=== PATIENT | male | born 1965 | race Two or more races ===

== ENCOUNTER 2019-07-02 05:40 | Inpatient (IN) | payer MEDICAID ==
[~2019-07-02] VITALS: Ht 170.2 cm; Wt 118.1 kg
[~2019-07-02 05:40] MED LIST: ASPI81TA45 PO; COLLAGEN PO; METF850T10 PO; RMFLEX PO
[2019-07-02] MEDS ORDERED: LACTATED RINGERS 1,000 ML IV SCH (06:01)
[2019-07-02 06:06] VITALS: BP 141/99
[2019-07-02] MEDS ORDERED: FENTANYL PF 250 MCG/5ML ONE (06:11)
[2019-07-02] MEDS ORDERED: ROCURONIUM 10MG/ML,5ML ONE (06:11)
[2019-07-02] MEDS ORDERED: ONDANSETRON 2MG/ML, 2ML ONE (06:11)
[2019-07-02] MEDS ORDERED: DEXAMETHASONE 4 MG/ML, 1ML ONE ×2 (06:11)
[2019-07-02] MEDS ORDERED: MIDAZOLAM 1 MG/ML, 2ML ONE (06:11)
[2019-07-02] MEDS ORDERED: CEFAZOLIN 1,000 MG ONE ×2 (06:11)
[2019-07-02] MEDS ORDERED: BUPIVACAINE/PF 0.25% ONE (06:15)
[2019-07-02] MEDS ORDERED: LIDOCAINE-MPF 2% ,5ML ONE (06:17)
[2019-07-02] MEDS ORDERED: KETOROLAC 60 MG/2 ML ONE (06:27)
[2019-07-02] MEDS ORDERED: TRANEXAMIC ACID 100 MG/ML, 10ML ONE ×2 (06:27)
[2019-07-02] MEDS ORDERED: EPINEPHRINE 1 MG/ML, 1ML ONE (06:28)
[2019-07-02] MEDS ORDERED: VANCOMYCIN 1,000 MG ONE (06:28)
[2019-07-02] MEDS ORDERED: ROPIvacaine/PF 0.5%, 30 ML ONE (06:28)
[2019-07-02] MEDS ORDERED: SODIUM CHLORIDE 0.9% 50 ML ONE (06:28)
[2019-07-02] MEDS ORDERED: SCOPOLAMINE PATCH, 1.5MG PATCH.TD72 TD ONE (06:30)
[2019-07-02] MEDS ORDERED: DIPHENHYDRAMINE 25 MG CAPSULE PO PRN (06:30)
[2019-07-02] MEDS ORDERED: ACETAMINOPHEN 650 MG/20.3 ML UDC PO PRN (06:30)
[2019-07-02] MEDS ORDERED: ONDANSETRON 2MG/ML, 2ML IV PRN ×2 (06:30→07:00)
[2019-07-02] MEDS ORDERED: HYDROmorphone 1 MG/ML, 1ML INJ IV PRN (06:30)
[2019-07-02] MEDS ORDERED: BISACODYL 10 MG SUPP PR PRN (06:30)
[2019-07-02] MEDS ORDERED: MAGNESIUM HYDROXIDE 8%, 30ML UDC PO PRN (06:30)
[2019-07-02] MEDS ORDERED: GABAPENTIN 300 MG CAPSULE PO ONE (06:30)
[2019-07-02] MEDS ORDERED: ONDANSETRON 4 MG TABLET PO PRN (06:30)
[2019-07-02] MEDS ORDERED: ACETAMINOPHEN 500 MG TABLET PO ONE (06:30)
[2019-07-02] MEDS ORDERED: SENNA/DOCUSATE TABLET PO PRN (06:30)
[2019-07-02] MEDS ORDERED: ZOLPIDEM 5MG TABLET PO PRN (06:30)
[2019-07-02] MEDS ORDERED: PROPOFOL 10 MG/ML, 20ML ONE (06:58)
[2019-07-02] MEDS ORDERED: LABETALOL 5MG/ML, 20ML IV PRN (07:00)
[2019-07-02] MEDS ORDERED: FENTANYL PF 100 MCG/2ML IV PRN (07:00)
[2019-07-02] MEDS ORDERED: METOCLOPRAMIDE 5 MG/ML, 2ML IV PRN (07:00)
[2019-07-02] MEDS ORDERED: OXYcodone 5 MG/5 ML ORAL.SOL UDC PO PRN (07:00)
[2019-07-02] MEDS ORDERED: MEPERIDINE/PF 25MG/ML,1ML IVPush PRN (07:00)
[2019-07-02] MEDS ORDERED: LORazepam 2 MG/ML, 1ML IVPush PRN (07:00)
[2019-07-02] MEDS ORDERED: hydrALAzine 20 MG/ML, 1ML IV PRN (07:00)
[2019-07-02] MEDS ORDERED: HYDROmorphone 2 MG/ML, 1ML IVPush PRN (07:00)
[2019-07-02] MEDS: INSULIN LISPRO 100 UNITS/ML, PEN SQ-INSULIN SCH ×4 (10:00→21:12)
[2019-07-02] MEDS ORDERED: OXYcodone 5 MG/5 ML ORAL.SOL UDC ONE (10:36)
[2019-07-02 12:23] VITALS: BP 133/96
[2019-07-02] MEDS: NS + 20MEQ KCL 1,000 ML IV SCH ×2 (12:32→18:57)
[2019-07-02] MEDS: DOCUSATE 100 MG CAPSULE PO SCH ×2 (12:32→20:15)
[2019-07-02] MEDS: metFORMIN 850 MG TABLET PO SCH (12:32)
[2019-07-02] MEDS: CEFAZOLIN PMX 2GM/50ML 50 ML IVPB SCH ×2 (14:33→23:04)
[2019-07-02] MEDS: OXYcodone IR 5MG TABLET PO PRN ×2 (17:10→21:18)
[2019-07-02 20:02] VITALS: BP 132/82
[2019-07-03 00:09] VITALS: BP 128/87
[2019-07-03] MEDS: OXYcodone IR 5MG TABLET PO PRN ×6 (01:29→21:43)
[2019-07-03 03:46] VITALS: BP 113/80
[2019-07-03] MEDS: RIVAROXABAN 10 MG TABLET PO SCH (05:54)
[2019-07-03] MEDS ORDERED: DEXAMETHASONE 4 MG/ML, 1ML IVPush SCH (06:00)
[2019-07-03 06:33] VITALS: BP 134/89
[2019-07-03] MEDS: NS + 20MEQ KCL 1,000 ML IV SCH ×2 (07:27→19:57)
[2019-07-03] MEDS: DOCUSATE 100 MG CAPSULE PO SCH ×2 (07:55→20:53)
[2019-07-03] MEDS: metFORMIN 850 MG TABLET PO SCH (07:55)
[2019-07-03] MEDS: INSULIN LISPRO 100 UNITS/ML, PEN SQ-INSULIN SCH ×4 (08:01→20:56)
[2019-07-03] MEDS ORDERED: OXYC5TAB3 PO (12:12)
[2019-07-03] MEDS ORDERED: RIVA10TA2 PO (12:13)
[2019-07-03] MEDS ORDERED: TRAM50TA2 PO (12:13)
[2019-07-03] MEDS ORDERED: MELO7.5T31 PO (12:13)
[2019-07-03 13:17] VITALS: BP 124/77
[2019-07-03] MEDS ORDERED: FLU VACC QS2019-20 36MOS UP/PF 0.5 ML IM-VACC ONE (14:00)
[2019-07-03 19:02] VITALS: BP 146/96
[2019-07-04 01:26] VITALS: BP 135/93
[2019-07-04] MEDS: HYDROcodone/APAP 5/325 TABLET PO PRN ×3 (01:56→10:45)
[2019-07-04] MEDS: RIVAROXABAN 10 MG TABLET PO SCH (06:08)
[2019-07-04 07:00] VITALS: BP 127/82
[2019-07-04] MEDS: INSULIN LISPRO 100 UNITS/ML, PEN SQ-INSULIN SCH ×2 (07:00→10:52)
[2019-07-04] MEDS: DOCUSATE 100 MG CAPSULE PO SCH (08:14)
[2019-07-04] MEDS: metFORMIN 850 MG TABLET PO SCH (08:14)
[2019-07-04] MEDS: NS + 20MEQ KCL 1,000 ML IV SCH (08:27)
[2019-07-04 12:57] VITALS: BP 116/78
== END 2019-07-04 14:15 | disposition home or self-care (01) | DRG 462 ==
LOC: OUT 05:40 → ORIP 06:27 → 4NE 10:50 → DCLOUNGE 07-04 14:10
PROVIDERS: ADMIT Orthopaedic Surgery; ATTEND Orthopaedic Surgery
PROC: 0SRC0J9 Replacement of Right Knee Joint with Synthetic Substitute, Cemented, Open Approach (ICD-10-PCS; 2019-07-02)
PROC: 3E0T3BZ Introduction of Anesthetic Agent into Peripheral Nerves and Plexi, Percutaneous Approach (ICD-10-PCS; 2019-07-02)
PROC: 0SRD0J9 Replacement of Left Knee Joint with Synthetic Substitute, Cemented, Open Approach (ICD-10-PCS; principal; 2019-07-02 07:00)
DX: M17.0 Bilateral primary osteoarthritis of knee (principal); E11.9 Type 2 diabetes mellitus without complications; Z82.49 Family history of ischemic heart disease and other diseases of the circulatory system
CPT/HCPCS: 36415; J3490; 82962; 85014; 85018; 90686; C1713; G0378; J0171; J0690; J1100; J1885; J2250; J2405; J2704; J2795; J3010; J3370; J3480; C1776; J1815